=== PATIENT | male | born 1975 | race African-American/Black ===

== ENCOUNTER 2017-06-14 12:28 | Emergency (ER) | payer BC ==
[~2017-06-14] VITALS: Ht 182.9 cm; Wt 109.8 kg
[2017-06-14] MEDS ORDERED: NAPROSYN500 MG PO (13:47)
[2017-06-14 14:25] VITALS: BP 192/114
== END 2017-06-14 14:26 | disposition home or self-care (01) ==
LOC: ER 12:28
DX: S66.912A Strain of unspecified muscle, fascia and tendon at wrist and hand level, left hand, initial encounter (principal); Z88.0 Allergy status to penicillin; V59.49XA Driver of pick-up truck or van injured in collision with other motor vehicles in traffic accident, initial encounter; Y93.89 Activity, other specified; Y92.89 Other specified places as the place of occurrence of the external cause; Y99.8 Other external cause status

== ENCOUNTER 2017-06-20 11:26 | Emergency (ER) | payer BC ==
[~2017-06-20] VITALS: Ht 182.9 cm; Wt 109.8 kg
[~2017-06-20 11:26] MED LIST: NAPROSYN500 MG PO
[2017-06-20 11:27] VITALS: BP 157/118
[2017-06-20] MEDS ORDERED: HYDROCODONE-AP1 EAC6 PO (12:35)
[2017-06-20] MEDS ORDERED: FLEXERIL PO (12:35)
== END 2017-06-20 12:38 | disposition home or self-care (01) ==
LOC: ER 11:26
DX: S46.912A Strain of unspecified muscle, fascia and tendon at shoulder and upper arm level, left arm, initial encounter (principal); Z88.0 Allergy status to penicillin; V43.52XA Car driver injured in collision with other type car in traffic accident, initial encounter; Y93.89 Activity, other specified; Y92.89 Other specified places as the place of occurrence of the external cause; Y99.8 Other external cause status

== ENCOUNTER 2019-01-14 11:36 | Emergency (ER) | payer BC ==
[~2019-01-14] VITALS: Ht 193 cm; Wt 108.9 kg
[~2019-01-14 11:36] MED LIST changes: +FLEXERIL PO; +HYDROCODONE-AP1 EAC6 PO; +LIORESAL 10 MG10 MG PO; +MOBIC15 MG PO
[2019-01-14] MEDS ORDERED: LOTENSIN HCT 21 EAC2 PO (13:45)
[2019-01-14 14:05] VITALS: BP 190/115
== END 2019-01-14 14:06 | disposition home or self-care (01) ==
LOC: ER 11:36
DX: S39.012A Strain of muscle, fascia and tendon of lower back, initial encounter (principal); R03.0 Elevated blood-pressure reading, without diagnosis of hypertension; Z88.0 Allergy status to penicillin; X58.XXXA Exposure to other specified factors, initial encounter; Y92.89 Other specified places as the place of occurrence of the external cause; Y93.89 Activity, other specified; Y99.8 Other external cause status